=== PATIENT | female | born 1940 | race Caucasian/White ===

== ENCOUNTER → 2023-11-22 11:00 | Outpatient (REF) | payer OTHER, SELFPAY ==
[2023-11-22 13:16] LABS: Urine Albumin Negative (Neg - Trace); Urine Bilirubin Negative (Negative); Urine Character Clear (Clear); Urine Color Yellow; Urine Glucose Negative (Negative); Urine Ketone Trace (Negative); Urine Leukocyte Trace (Negative); Urine Nitrite Negative (Negative); Urine Occult Blood Negative (Negative); Urine Specific Gravity 1.015 (<1.030); Urine Urobilinogen Negative (Neg - 1+)
[2023-11-22 13:33] LABS: Urine Bacteria Few (Negative); Urine Red Blood Cell 0-2 /HPF (0-2)
== END ==
LOC: OLABSOL 11:00
PROVIDERS: ATTENDING PHYSICIAN Family Medicine
DX: N39.0 Urinary tract infection, site not specified (principal)
CPT/HCPCS: 81003; 81015; 87086

== ENCOUNTER 2024-02-27 10:14 | Emergency (ER) | payer OTHER, SELFPAY ==
[2024-02-27] VITALS (7 sets, daily range): BP systolic 114–141; BP diastolic 54–92
--- NOTE | 2024-02-27 11:10 | ED.GENMED ---
History of Present Illness
General
Chief Complaint: Fall
Source: patient
Exam Limitations: none
Time Seen by Provider: 02/27/24 10:42
History of Present Illness
History of Present Illness:
83-year-old female with history of dementia from [place] presents after fall. She fell backwards onto her head. She is limited historian secondary to dementia but denies any significant pain. She is not anticoagulated. No other complaints.
Past History
Past History
ED Past Medical History: GERD, Hypothyroidism and Other (Dementia)
ED Past Surgical History: Orthopedic (Right knee surgery, bilateral hip replacement) and Tonsilectomy
Patient has exhibited threatening behavior?: No
PSI?: No
Social History
Tobacco: Non-smoker
Alcohol: None
Drug: None
Personal:
Living: assisted living
Employment: Retired
Phy Exam
Physical Exam
Physical Exam:
General: Well-appearing female no acute respiratory distress HEENT: Normocephalic atraumatic
No obvious scalp abrasion or hematoma pupils equal round reactive to light
Heart: Regular rate and rhythm no murmurs
Lungs: Clear no wheeze or rales
Musculoskeletal exam: Cervical spine immobilized in collar.
Good range of motion all extremities
Course
Orders/Labs/Results
Orders:
Orders
02/27/24 10:47
CT Cervical Spine W/o Iv Contr Urgent
Comment:
Reason For Exam: fall
CT Head W/o Iv Contrast Urgent
Comment:
Reason For Exam: fall
Vital Signs
Initial and Last Documented VS:
Initial Vital Signs
BP
141/70
02/27/24 10:17
Last Documented Vital Signs
Temp Pulse Resp BP Pulse Ox
98 F 68 19 127/64 96
02/27/24 10:18 02/27/24 12:15 02/27/24 12:15 02/27/24 12:00 02/27/24 12:15
MDM/Problems Addressed
Differential Diagnosis Includes:
Unwitnessed fall possible head strike. CT of head and cervical spine pending. She is alert otherwise.
*Critical Care Note
Total Time (30-74mins, 75-104mins- exclusive of procedures): Not Applicable
Update Note
Update Note:
CT of head and cervical spine both negative for acute finding. Patient has been stable. She is cleared for discharge back to her facility.
ED Attending Note
-
Portions of this chart may have been created with voice recognition software.� Occasional wrong word or��sound alike� substitutions may have occurred due to the inherent limitations of voice recognition software.
Discharge Plan
Departure
Patient Disposition: Home (Routine Discharge)
Date of Disposition: 02/27/24
Time of Disposition: 12:33
Patient with high blood pressure during this ER visit?: No
Discharge Problem:
Fall
Instructions: Preventing falls in adults
Prescriptions:
No Action
alendronate 70 MG tablet
70 mg PO TH
acetaminophen [Tylenol Extra Strength] 500 MG tablet
1,000 mg PO Q8H
pantoprazole 40 MG tablet,delayed release (DR/EC)
40 mg PO QPM
cholecalciferol (vitamin D3) 2,000 UNITS tablet
2,000 units PO DAILY
acetaminophen [Tylenol] 325 mg Tablet
325 mg PO DAILY
ondansetron HCl 4 mg Tablet
4 mg PO Q6H PRN (Reason: nausea)
clotrimazole-betamethasone 1-0.05 % Cream
1 applic TOPICAL DAILYPRN PRN (Reason: skin)
[id number] Drops
1 drp BOTH EYES TIDPRN PRN (Reason: dryness)
Desitin Rapid Relief 13 % Cream
1 applic TOPICAL TIDPRN PRN (Reason: buttocks)
Referrals:
Neft,Pablito E, MD [Family Provider] -
Activity Restrictions/Additional Instructions:
You may use Tylenol if needed for pain. Return if worse otherwise follow-up with family doctor
Interventions
Interventions:
*Risk Screen - Suicide Last Done: 02/27/24 10:23
*General Assessment Last Done: 02/27/24 10:22
*Neglect/Abuse Screening Last Done: 02/27/24 10:23
*ED COVID-19 Vaccine History Last Done: 02/27/24 10:22
ED-Musculoskeletal Assessment Last Done: 02/27/24 10:23
ED- Neurological Assessment Last Done: 02/27/24 10:23
ED-Skin Assessment Last Done: 02/27/24 10:23
Discharge Date and Time
Print Language: WELSH
== END 2024-02-27 14:46 | disposition home or self-care (01) ==
LOC: EMR 10:14
PROVIDERS: EMERGENCY PHYSICIAN Emergency Medicine; FAMILY PHYSICIAN Family Medicine
DX: S09.90XA Unspecified injury of head, initial encounter (principal); W19.XXXA Unspecified fall, initial encounter; F03.90 Unspecified dementia, unspecified severity, without behavioral disturbance, psychotic disturbance, mood disturbance, and anxiety; K21.9 Gastro-esophageal reflux disease without esophagitis; E03.9 Hypothyroidism, unspecified; Z96.643 Presence of artificial hip joint, bilateral; Z88.0 Allergy status to penicillin; Z88.2 Allergy status to sulfonamides; Z88.8 Allergy status to other drugs, medicaments and biological substances
CPT/HCPCS: 99284; 70450; 72125

== ENCOUNTER 2024-06-14 19:34 | Emergency (ER) | payer OTHER, SELFPAY ==
[2024-06-14 19:37] VITALS: BP 165/73
[2024-06-14 19:50] VITALS: BMI 18.9
--- NOTE | 2024-06-14 20:40 | ED.GENMED ---
History of Present Illness
General
Chief Complaint: Fall
Source: patient and family
Exam Limitations: dementia
Time Seen by Provider: 06/14/24 20:20
Nursing documentation reviewed up to this point in time: agreed with
History of Present Illness
History of Present Illness:
84-year-old female from a dementia unit presents with head trauma apparently walk without her walker walked into a wall, witnessed by caregiver if she has some bleeding to her left forehead accompanied by her son she is at her baseline oriented x 3
but demented moving all extremities no complaints no visual changes, exacerbate no other blood thinners unsure of her last tetanus
Past History
Past History
ED Past Medical History: GERD, Hypothyroidism and Other (Dementia)
ED Past Surgical History: Orthopedic (Right knee surgery, bilateral hip replacement) and Tonsilectomy
Patient has exhibited threatening behavior?: No
PSI?: No
Social History
Tobacco: Non-smoker
Alcohol: None
Drug: None
Personal:
Living: assisted living
Employment: Retired
Phy Exam
Physical Exam
Physical Exam:
Physical Exam
General: Pleasant elderly female no acute distress knows her name knows her son is with her
Neck: No tongue bite no posterior neck pain hematoma with abrasion over left eye pupils are round and reactive no proptosis
Heart: Regular
Lungs: no acute respiratory distress.
Neuro: alert and oriented. Grossly nonfocal
Skin: no rash
Psychiatric: Demented cooperative
Extremities: no edema.
Course
Orders/Labs/Results
Orders:
Orders
06/14/24 20:37
Ice Pack-Treatment DIRECTED
Location: face
Tetanus/Diphth/Acelpertussis [Adacel] 0.5 ml IM .ONCE ONE
06/14/24 20:38
Wound Dressing- Treatment ONCE
Location of Wound: forehead
Vital Signs
Initial and Last Documented VS:
Initial Vital Signs
Temp Pulse Resp BP Pulse Ox
98.2 F 79 18 165/73 99
06/14/24 19:37 06/14/24 19:37 06/14/24 19:37 06/14/24 19:37 06/14/24 19:37
Last Documented Vital Signs
Temp Pulse Resp BP Pulse Ox
98.2 F 79 18 165/73 99
06/14/24 19:37 06/14/24 19:37 06/14/24 19:37 06/14/24 19:37 06/14/24 19:37
Procedures
Laceration Closure
Left Head:
Status of Wound: clean
Size of Wound in cm: 1
Description of Wound Edges: ragged and flap-well vascularized
Preparation: cleaned with saline
Anesthesia: 1% Lidocaine with epi
Revision/Debridement: routine- no revision
Wound exploration: explored to base- no FB
Type of Closure: single layer closure
Skin Closure Material: 5-0 nylon
Number of sutures: 2
Additional information:
Stellate abrasion which was oozing despite direct pressure, two 5-0 nylon sutures
MDM/Problems Addressed
Differential Diagnosis Includes:
Contusion laceration abrasion skull fracture intracerebral hemorrhage
MDM/Problems Addressed:
Head trauma
Chronic conditions affecting care: Neurological disorder
Acute Exacerbation and/or Progression of Chronic Illness: Neurological disorder
*Radiology
Radiology exam reviewed: other (Numerous prior CAT scan)
*Pulse Oximetry
Patient hypoxic: no
*Critical Care Note
Total Time (30-74mins, 75-104mins- exclusive of procedures): Not Applicable
Update Note
Update Note:
Updates shared decision making with myself patient and son think we can hold off on a CAT scan she has had numerous in the past not on blood thinners appears to be a low risk mechanism, her risk of intracerebral hemorrhage or skull fracture is low
although not 0, will update her tetanus, provide wound care ice, have her follow-up here if there is any worsening mental status
ED Attending Note
-
Portions of this chart may have been created with voice recognition software.� Occasional wrong word or��sound alike� substitutions may have occurred due to the inherent limitations of voice recognition software.
Discharge Plan
Departure
Patient Disposition: Home (Routine Discharge)
Date of Disposition: 06/14/24
Time of Disposition: 21:05
Patient with high blood pressure during this ER visit?: No
Condition: Good
Discharge Problem:
Fall
Instructions: Head Injury in Adults (DC), Laceration Repair With Stitches (DC), Preventing falls in adults, Wound Care (DC)
Prescriptions:
No Action
alendronate 70 MG tablet
70 mg PO TH
acetaminophen [Tylenol Extra Strength] 500 MG tablet
500 mg PO DAILY
pantoprazole 40 MG tablet,delayed release (DR/EC)
40 mg PO QPM
ondansetron HCl 4 mg Tablet
4 mg PO Q6HPRN PRN (Reason: nausea)
aspirin 325 mg tablet
325 mg PO DAILY
docusate sodium 100 mg Capsule
100 mg PO DAILY
buspirone 15 mg Tablet
15 mg PO BID
Systane Ultra 0.4-0.3 % Drops
1 drp BOTH EYES BID
cholecalciferol (vitamin D3) 50 mcg (2,000 unit) Tablet
50 mcg PO DAILY
Activity Restrictions/Additional Instructions:
Stitches out in 5 to 7 days
Interventions
Interventions:
*Risk Screen - Suicide Last Done: 06/14/24 19:48
*General Assessment Last Done: 06/14/24 19:48
*Neglect/Abuse Screening Last Done: 06/14/24 19:48
*ED COVID-19 Vaccine History Last Done: 06/14/24 19:48
ED-Musculoskeletal Assessment Last Done: 06/14/24 19:51
ED- Neurological Assessment Last Done: 06/14/24 19:49
ED-Skin Assessment Last Done: 06/14/24 19:51
Discharge Date and Time
Print Language: CUBAN
[2024-06-14] MEDS: TYLENOL 650 MG PO (21:11)
[2024-06-14] MEDS: ADACEL 0.5 ML IM (21:13)
== END 2024-06-14 21:40 | disposition home or self-care (01) ==
LOC: EMR 19:34
PROVIDERS: EMERGENCY PHYSICIAN Emergency Medicine; FAMILY PHYSICIAN Family Medicine
DX: S01.81XA Laceration without foreign body of other part of head, initial encounter (principal); W22.01XA Walked into wall, initial encounter; F03.90 Unspecified dementia, unspecified severity, without behavioral disturbance, psychotic disturbance, mood disturbance, and anxiety; Z23 Encounter for immunization
CPT/HCPCS: 99283; 12011; 90471; 90715

== ENCOUNTER 2024-08-17 08:49 | Emergency (ER) | payer OTHER, MEDICARE, SELFPAY ==
[2024-08-17 08:52] VITALS: BP 96/76
[2024-08-17 08:54] VITALS: BP 96/76
[2024-08-17 09:01] VITALS: BP 154/72
--- NOTE | 2024-08-17 09:21 | ED.GENMED ---
History of Present Illness
General
Chief Complaint: Fall
Time Seen by Provider: 08/17/24 08:55
History of Present Illness
History of Present Illness:
84-year-old female with history of dementia presents from [facility] after a witnessed fall. Reported mechanical trip and fall, struck the back of her head on the ground. No reported loss of conscious. Arrives with c-collar
immobilization and a visible laceration to the right parietal scalp.
Past History
Past History
ED Past Medical History: GERD, Hypothyroidism and Other (Dementia)
ED Past Surgical History: Orthopedic (Right knee surgery, bilateral hip replacement) and Tonsilectomy
Patient has exhibited threatening behavior?: No
PSI?: No
Social History
Tobacco: Non-smoker
Alcohol: None
Drug: None
Personal:
Living: assisted living
Employment: Retired
Review of Systems
Review of Systems
Allergies reviewed?: Yes
All Other Systems: ROS reviewed and negative except as documented in HPI and ROS
Phy Exam
Physical Exam
Physical Exam:
GEN: Well appearing, NAD, WDWN
Eyes: PERRLA, EOMs intact, no scleral icterus
HENT: 4 cm curvilinear laceration to the right parietal scalp, no cranial deformity
Lungs: CTAB, no wheezes, rales, rhonchi, normal chest wall excursion
Cardiac: RRR, no M/R/G, no peripheral edema. Radial pulses 2+ bilat
Abdomen: S, NT, ND, NABS, no masses or hepatosplenomegaly
Neuro: Alert and oriented to person and place, disoriented to time and events
MSK: No gross deformity or ecchymosis. Pelvis is stable with no crepitus
Skin: No rashes, petechiae. Normal color, no pallor or jaundice.
Psych: Calm, cooperative, proper hygiene
Course
Orders/Labs/Results
Orders:
Orders
08/17/24 09:07
CT Cervical Spine W/o Iv Contr Urgent
Comment:
Reason For Exam: fall
CT Head W/o Iv Contrast Urgent
Comment:
Reason For Exam: fall
Vital Signs
Initial and Last Documented VS:
Initial Vital Signs
Temp Pulse Resp BP Pulse Ox
97.6 F 72 16 96/76 96
08/17/24 08:52 08/17/24 08:52 08/17/24 08:52 08/17/24 08:52 08/17/24 08:52
Last Documented Vital Signs
Temp Pulse Resp BP Pulse Ox
97.6 F 61 16 139/68 95
08/17/24 08:52 08/17/24 11:24 08/17/24 11:24 08/17/24 11:24 08/17/24 11:24
MDM/Problems Addressed
MDM/Problems Addressed:
Scalp laceration repaired at the bedside with prema. Head CT and C-spine CT are unremarkable
*Critical Care Note
Total Time (30-74mins, 75-104mins- exclusive of procedures): Not Applicable
ED Attending Note
-
Portions of this chart may have been created with voice recognition software.� Occasional wrong word or��sound alike� substitutions may have occurred due to the inherent limitations of voice recognition software.
Discharge Plan
Departure
Patient Disposition: Home (Routine Discharge)
Date of Disposition: 08/17/24
Time of Disposition: 11:12
Patient with high blood pressure during this ER visit?: No
Discharge Problem:
Laceration of scalp
Instructions: Laceration Repair With Prema (DC)
Prescriptions:
No Action
alendronate 70 MG tablet
70 mg PO TH
acetaminophen [Tylenol Extra Strength] 500 MG tablet
500 mg PO DAILY
pantoprazole 40 MG tablet,delayed release (DR/EC)
40 mg PO QPM
ondansetron HCl 4 mg Tablet
4 mg PO Q6HPRN PRN (Reason: nausea)
aspirin 325 mg tablet
325 mg PO DAILY
docusate sodium 100 mg Capsule
100 mg PO DAILY
buspirone 15 mg Tablet
15 mg PO BID
Systane Ultra 0.4-0.3 % Drops
1 drp BOTH EYES BID
cholecalciferol (vitamin D3) 50 mcg (2,000 unit) Tablet
50 mcg PO DAILY
Referrals:
Pablito Madrid MD [Family Provider] -
Activity Restrictions/Additional Instructions:
Keep wound dry for 24 hours then washing is ok
Staple removal in 5-7 days
Interventions
Interventions:
*Risk Screen - Suicide Last Done: 08/17/24 08:52
*General Assessment Last Done: 08/17/24 08:52
*Neglect/Abuse Screening Last Done: 08/17/24 08:52
ED- Fall Risk Assessment Last Done: 08/17/24 11:24
*ED COVID-19 Vaccine History Last Done: 08/17/24 08:52
*Nursing Disposition Last Done: 08/17/24 11:24
ED-Musculoskeletal Assessment Last Done: 08/17/24 08:52
ED- Neurological Assessment Last Done: 08/17/24 08:52
ED-Skin Assessment Last Done: 08/17/24 08:52
Discharge Date and Time
Discharge Date/Time: 08/17/24 11:25
Print Language: PORTUGUESE
[2024-08-17 10:00] VITALS: BP 137/81
[2024-08-17 11:24] VITALS: BP 139/68
== END 2024-08-17 11:25 | disposition home or self-care (01) ==
LOC: EMR 08:49
PROVIDERS: EMERGENCY PHYSICIAN Student in an Organized Health Care Education/Training Program; FAMILY PHYSICIAN Family Medicine
DX: S01.01XA Laceration without foreign body of scalp, initial encounter (principal); W01.0XXA Fall on same level from slipping, tripping and stumbling without subsequent striking against object, initial encounter; F03.90 Unspecified dementia, unspecified severity, without behavioral disturbance, psychotic disturbance, mood disturbance, and anxiety
CPT/HCPCS: 99284; 12032; 70450; 72125

== ENCOUNTER 2024-10-16 08:46 | Emergency (ER) | payer OTHER, SELFPAY ==
--- NOTE | 2024-10-16 09:01 | ED.GENMED ---
History of Present Illness
General
Chief Complaint: Fall
Source: patient and ambulance crew
Exam Limitations: dementia
Time Seen by Provider: 10/16/24 08:50
History of Present Illness
History of Present Illness:
84yoF with a history of dementia, osteoporosis, and hypothyroidism presenting via EMS for evaluation after a fall. Patient is a resident at [facility]. EMS reports that patient had a mechanical fall after tripping in the [place] this morning. She struck
her head but there was no loss of consciousness. EMS assisted patient off the ground. She was complaining of knee pain to alf staff. She denies any complaints on arrival. She does not take any blood thinners. She ambulates with a
walker and is at baseline mental status per EMS report.
Past History
Past History
ED Past Medical History: GERD, Hypothyroidism and Other (Dementia)
ED Past Surgical History: Orthopedic (Right knee surgery, bilateral hip replacement) and Tonsilectomy
Patient has exhibited threatening behavior?: No
PSI?: No
Social History
Tobacco: Non-smoker
Alcohol: None
Drug: None
Personal:
Living: assisted living
Employment: Retired
Phy Exam
General Physical Exam
General Presentation: well appearing and no apparent distress
General age: appears stated age
General Skin: warm and dry
General Habitus: normal
General Mental: alert
ENT Exam
ENT Exam: normocephalic and other (No external signs of head trauma. No cervical spine tenderness.)
Eye Exam
Eye Exam: PERRL
Pulmonary Exam
Pulmonary Exam: lungs clear, no respiratory distress, no rales, chest non tender, no rhonchi and other (No chest wall tenderness. Bilateral breath sounds equal. )
Gastrointestinal Exam
Gastrointestinal Exam: non tender, soft and non distended
Neurological Exam
Neurological Exam: alert
Musculoskeletal Exam
Musculoskeletal Exam: other (No swelling or ecchymosis noted to knees bilaterally although she reports pain with passive ROM.)
Skin Exam
Skin Exam: normal color and warm/dry
Psychiatric Exam
Psychiatric Exam: normal mood/affect
Course
Orders/Labs/Results
Orders:
Orders
10/16/24 08:57
CT Cervical Spine W/o Iv Contr Urgent
Comment:
Reason For Exam: fall with head strike
CT Head W/o Iv Contrast Urgent
Comment:
Reason For Exam: fall with head strike
CR Knee - Left 4 Or More View* Urgent
Comment:
Reason For Exam: fall
CR Knee- Right 4 Or More View* Urgent
Comment:
Reason For Exam: fall
10/16/24 08:58
CR Chest - 2 Views Urgent
Comment:
Reason For Exam: fall
Vital Signs
Initial and Last Documented VS:
Initial Vital Signs
Temp Pulse Resp BP Pulse Ox
98.1 F 64 18 132/53 98
10/16/24 09:07 10/16/24 09:07 10/16/24 09:07 10/16/24 09:07 10/16/24 09:07
Last Documented Vital Signs
Temp Pulse Resp BP Pulse Ox
98.1 F 73 18 131/77 98
10/16/24 09:07 10/16/24 11:40 10/16/24 11:40 10/16/24 11:40 10/16/24 11:40
MDM/Problems Addressed
Differential Diagnosis Includes:
84yoF presenting from [facility] after a mechanical fall with head strike. Hx of frequent falls and dementia. She was reportedly c/o knee pain at the facility but denies any complaints at this [facility]. VSS. She is awake and alert. No external signs of head
trauma on exam. No cervical spine tenderness noted. Differential diagnosis includes but is not limited to: closed head injury, intracranial hemorrhage, fracture
Initial ED plan: Check CT head/cervical spine, bilateral knee x-rays, and CXR.
*Critical Care Note
Total Time (30-74mins, 75-104mins- exclusive of procedures): Not Applicable
Update Note
Update Note:
CT head and cervical spine negative for acute findings. No fractures seen on bilateral knee x-rays per my interpretation. Patient continues to have no complaints on reassessment. She is stable for discharge back to [facility]. Son is requesting for a
prescription for PT which was provided. Advised f/u with PCP. Son will transport patient back to [facility].
ED Attending Note
-
Portions of this chart may have been created with voice recognition software.� Occasional wrong word or��sound alike� substitutions may have occurred due to the inherent limitations of voice recognition software.
Discharge Plan
Departure
Patient Disposition: Home (Routine Discharge)
Date of Disposition: 10/16/24
Time of Disposition: 10:26
Patient with high blood pressure during this ER visit?: No
Discharge Problem:
Fall from ground level, Closed head injury
Instructions: Head Injury in Adults (DC), Preventing falls in adults
Prescriptions:
No Action
alendronate 70 MG tablet
70 mg PO TH
acetaminophen [Tylenol Extra Strength] 500 MG tablet
500 mg PO DAILY
pantoprazole 40 MG tablet,delayed release (DR/EC)
40 mg PO QPM
ondansetron HCl 4 mg Tablet
4 mg PO Q6HPRN PRN (Reason: nausea)
aspirin 325 mg tablet
325 mg PO DAILY
docusate sodium 100 mg Capsule
100 mg PO DAILY
buspirone 15 mg Tablet
15 mg PO BID
Systane Ultra 0.4-0.3 % Drops
1 drp BOTH EYES BID
cholecalciferol (vitamin D3) 50 mcg (2,000 unit) Tablet
50 mcg PO DAILY
Referrals:
UNKNOWN,NO INTERVIEW [Family Provider] -
Activity Restrictions/Additional Instructions:
Please follow-up with your family doctor. Return to the ER with any new or worsening symptoms.
Interventions
Interventions:
*Risk Screen - Suicide Last Done: 10/16/24 09:07
*General Assessment Last Done: 10/16/24 09:07
*Neglect/Abuse Screening Last Done: 10/16/24 09:07
ED- Fall Risk Assessment Last Done: 10/16/24 11:40
*ED COVID-19 Vaccine History Last Done: 10/16/24 09:07
*Nursing Disposition Last Done: 10/16/24 11:40
ED-Musculoskeletal Assessment Last Done: 10/16/24 09:07
ED- Neurological Assessment Last Done: 10/16/24 09:07
ED-Skin Assessment Last Done: 10/16/24 09:07
Discharge Date and Time
Discharge Date/Time: 10/16/24 11:43
Print Language: MOLDOVAN
[2024-10-16 09:07] VITALS: BP 132/53; BMI 16.4
[2024-10-16 11:40] VITALS: BP 131/77
== END 2024-10-16 11:43 | disposition home or self-care (01) ==
LOC: EMR 08:46
PROVIDERS: EMERGENCY PHYSICIAN Emergency Medicine
DX: S09.90XA Unspecified injury of head, initial encounter (principal); M25.562 Pain in left knee; M25.561 Pain in right knee; W01.0XXA Fall on same level from slipping, tripping and stumbling without subsequent striking against object, initial encounter; R29.6 Repeated falls; F03.90 Unspecified dementia, unspecified severity, without behavioral disturbance, psychotic disturbance, mood disturbance, and anxiety; E03.9 Hypothyroidism, unspecified
CPT/HCPCS: 99285; 70450; 71046; 72125; 73564